=== PATIENT | female | born 2000 | race Caucasian/White ===

== ENCOUNTER 2022-06-11 22:04 | Emergency (ER) | payer OTHER, SELFPAY ==
--- NOTE | ~2022-06-11 | XR_ITS ---
EXAMINATION: XR CHEST CLINICAL INFORMATION: Cough, leukocytosis COMPARISON: None TECHNIQUE: 2 views of the chest were obtained. FINDINGS: The lungs are clear with no focal consolidation. No evidence of pneumothorax, pulmonary edema, or pleural effusions. The cardiomediastinal silhouette is unremarkable. No acute osseous findings. XR/XR chest 2V IMPRESSION: No acute cardiopulmonary findings.
[2022-06-11 22:19] VITALS: BP 125/81; PULSE 85; RESP 20; TEMP 36.7; O2SAT 96; BMI 37.1
[2022-06-11 23:02] LABS: Basophils Absolute Auto 0.1 X10*3/uL (0.0-0.2); Basophils Percent Auto 0.6 % (0-2); Eosinophils Absolute Auto 0.3 X10*3/uL (0.0-0.4); Eosinophils Percent Auto 1.6 % (0-4); Hematocrit 37.8 % (37.0-47.0); Hemoglobin 13.4 g/dl (12.0-16.0); Imm Gran Abs Auto 0.09 X10*3/uL (0.00-0.03); Imm Gran Pct Auto 0.5 % (0.0-0.4); Lymphocytes Absolute Auto 5.3 X10*3/uL (1.2-4.9); Lymphocytes Percent Auto 26.9 % (20-40); MANUAL DIFF FLAG SCAN; Mean Corpuscular HGB Conc 35.4 g/dl (31.0-35.0); Mean Corpuscular Hemoglobin 29.8 pg (27.0-33.0); Mean Platelet Volume 8.4 fL (9.4-12.3); Monocytes Absolute Auto 1.3 X10*3/uL (0.1-1.2); Monocytes Percent Auto 6.4 % (2-11); Neutrophils Absolute Auto 12.7 x10*3/uL (2.0-8.3); Platelet Count 396 X10*3/uL (160-400); Red Cell Distribution Width 13.3 % (11.0-16.0); SCAN SMEAR FLAG 1; White Blood Count 19.8 X10*3/uL (4.8-10.8)
[2022-06-11 23:11] LABS: Anion Gap 16 (12-20); Blood Urea Nitrogen 9 mg/dL (9-16); Calcium 9.1 mg/dL (8.4-10.2); Carbon Dioxide 22 mmol/L (22-29); Chloride 102 mmol/L (96-108); Creatinine Clr Calc Pharmacy 138.6; Estimated Glomerular Filt Rate > 60; Glucose Random 130 mg/dL (60-115); Potassium 4.2 mmol/L (3.3-5.1); Sodium 136 mmol/L (135-145)
[2022-06-11 23:16] LABS: COVID-19 Test Negative (Negative)
[2022-06-11 23:18] LABS: SLIDE REVIEW VERIFIED
[2022-06-12 01:37] VITALS: BP 110/70; PULSE 69; RESP 20; TEMP 36.7; O2SAT 98
--- NOTE | 2022-06-12 01:37 | ED_ITS ---
HPI - URI/Sore Throat General Chief Complaint: Headache Stated Complaint: Pain in head and face, biotaste in mouth Time Seen by Provider: 06/12/22 01:25 Source: patient and family Mode of arrival: ambulatory Limitations: no limitations History of Present Illness HPI Narrative: Patient otherwise healthy vaccinated against COVID been sick for last 4 days. Other family member was sick last week but tested positive for COVID. Patient tested negative. 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 no fever or chills no shortness of breath no wheezing Related Data Previous Rx's Medication Instructions Recorded amoxicillin 875 mg-potassium 1 tab PO BID #20 tabs 06/12/22 clavulanate 125 mg tablet benzonatate 200 mg capsule 200 mg PO TID PRN cough #20 caps 06/12/22 Allergies Allergy/AdvReac Type Severity Reaction Status Date / Time cat dander Allergy Itching Verified 06/11/22 22:26 dog dander Allergy Itching Verified 06/11/22 22:26 Review of Systems Review of Systems: Yes all other systems are reviewed and are negative [facility] Social History Social History Advance Directives: No Advance Directives Information Provided: Yes Patient : No Physical Exam Vital Signs: Vital Signs: Last Vital Signs Temp 98.1 F 06/12/22 01:37 Pulse 69 06/12/22 01:37 Resp 20 06/12/22 01:37 BP 110/70 06/12/22 01:37 Pulse Ox 98 06/12/22 01:37 O2 Del Method 06/12/22 01:37 BMI result Body Mass Index 37.1 Appearance: Alert. Oriented X3. No acute distress. HEENT: Pharynx normal. Oral Mucosa moist maxillary sinus and frontal sinus tenderness+ Neck: Normal inspection. Neck supple. CVS: Normal heart rate and rhythm. Pulses normal. Respiratory: No respiratory distress. Equal air entry bilateral, no wheezing/r ales/rhonchi Abdomen: Soft and nontender. Bowel sounds are present, no mass palpable, no CVA tenderness Skin: Skin warm and dry. Normal skin color. Normal skin turgor. Extremities: No lower extremity edema. No calf tenderness Neuro: Oriented X 3. No motor deficit. MDM - URI/Sore Throat MDM Narrative Medical decision making narrative: Patient has sinus headache with bronchitis chest x-ray negative leukocytosis will discharge patient home on Augmentin patient looks comfortable nontoxic look Lab Data Attestation: I reviewed the patient's lab results. Result diagrams: 06/11/22 22:52 06/11/22 22:52 Labs: Lab Results 06/11/22 06/11/22 06/11/22 Range/Units 22:52 22:52 22:52 WBC 19.8 H (4.8-10.8) X10*3/uL RBC 4.50 (4.20-5.50) X10*6/uL Hgb 13.4 (12.0-16.0) g/dl Hct 37.8 (37.0-47.0) % MCV 84.0 (80.0-98.0) fL MCH 29.8 (27.0-33.0) pg MCHC 35.4 H (31.0-35.0) g/dl RDW 13.3 (11.0-16.0) % Plt Count 396 (160-400) X10*3/uL MPV 8.4 L (9.4-12.3) fL Immature Gran % (Auto) 0.5 H (0.0-0.4) % Neut % (Auto) 64.0 (45-73) % Lymph % (Auto) 26.9 (20-40) % [place] % (Auto) 6.4 (2-11) % Eos % (Auto) 1.6 (0-4) % Baso % (Auto) 0.6 (0-2) % Lymph # (Auto) 5.3 H (1.2-4.9) X10*3/uL [place] # (Auto) 1.3 H (0.1-1.2) X10*3/uL Eos # (Auto) 0.3 (0.0-0.4) X10*3/uL Baso # (Auto) 0.1 (0.0-0.2) X10*3/uL Abs Immat Gran (auto) 0.09 H (0.00-0.03) X10*3/uL Absolute Neuts (auto) 12.7 H (2.0-8.3) x10*3/uL Absolute Nucleated RBC 0.000 (0.0-0.012) X10*3/uL Nucleated RBC % (auto) 0.0 (0.0-0.2) /100WBC Smear Tech's Comments VERIFIED Sodium 136 (135-145) mmol/L Potassium 4.2 (3.3-5.1) mmol/L Chloride 102 (96-108) mmol/L Carbon Dioxide 22 (22-29) mmol/L Anion Gap 16 (12-20) BUN 9 (9-16) mg/dL Creatinine 0.77 (0.5-1.4) mg/dL Estim Creat Clear Calc 138.6 Estimated GFR > 60 Random Glucose 130 H (60-115) mg/dL Calcium 9.1 (8.4-10.2) mg/dL COVID-19 (BRENDEN) Negative (Negative) COVID-19 Clin Com See Note Discharge Plan Discharge Clinical Impression: Sinusitis, Bronchitis Patient Disposition: Home, Self-Care Instructions: Acute Bronchitis (ED), Rhinosinusitis (ED) Additional Instructions: Take antibiotic as directed Drink plenty of fluids Follow with PCP Prescriptions: New amoxicillin-pot clavulanate 875-125 mg tablet 1 tab PO BID Qty: 20 0RF benzonatate 200 mg capsule 200 mg PO TID PRN (Reason: cough) Qty: 20 0RF Interventions: ED Discharge Assessment Last Done: 06/12/22 02:35 Discharge Date/Time: 06/12/22 02:38
[2022-06-12] MEDS: Amoxicillin/Potassium Clav 875 MG TABLET PO (01:47)
== END 2022-06-12 02:38 | disposition home or self-care (01) ==
PROVIDERS: Emergency Provider Internal Medicine
DX: J32.8 Other chronic sinusitis (principal); J40 Bronchitis, not specified as acute or chronic; Z20.822 Contact with and (suspected) exposure to COVID-19
CPT/HCPCS: 36415; 71046; 80048; 85025; 87635; 99283

== ENCOUNTER 2022-12-14 13:00 | Outpatient (RCR) | payer OTHER, SELFPAY | END 2022-12-14 14:19 | disposition home or self-care (01) | LOC: HO.OT 13:00 | PROVIDERS: PCP Internal Medicine; Visit Provider Internal Medicine | DX: M25.531 Pain in right wrist (principal); M25.532 Pain in left wrist | CPT/HCPCS: 97110; 97165 ==

== ENCOUNTER 2023-04-18 14:00 | Outpatient (RCR) | payer OTHER, SELFPAY | END 2023-05-23 08:28 | disposition home or self-care (01) | LOC: HO.PT 14:00 | PROVIDERS: PCP Internal Medicine; Visit Provider Registered Nurse | DX: M79.605 Pain in left leg (principal); M79.604 Pain in right leg | CPT/HCPCS: 97110; 97161 ==

== ENCOUNTER 2024-03-18 15:19 | Emergency (ER) | payer OTHER, SELFPAY ==
--- NOTE | ~2024-03-18 | XR_ITS ---
EXAMINATION: XR CHEST CLINICAL INFORMATION: Left upper quadrant pain COMPARISON: Chest x-ray on 06/12/2022 TECHNIQUE: Frontal view of the chest was obtained. FINDINGS: No significant abnormality is noted involving the heart, lungs, mediastinum, bony thorax or soft tissues. XR/XR chest 1V IMPRESSION: Unremarkable examination.
--- NOTE | ~2024-03-18 | CT_ITS ---
EXAMINATION: CT angio chest PE protocol, CT abdomen pelvis w IV con CLINICAL INFORMATION: Left upper quadrant pain. Pleurisy. COMPARISON: Chest radiograph from earlier in the same day TECHNIQUE: Prior to contrast administration, noncontrast localization images were obtained. Subsequently, multidetector volumetric imaging was performed from the thoracic inlet to below the diaphragms following the administration of 85 mL Omnipaque 350 intravenous contrast. This was followed by multidetector acquisition of the abdomen and pelvis. No contrast reaction reported Sagittal, coronal, and MIP oblique sagittal reformatted images were obtained on the CT workstation, uploaded to PACS, and reviewed. Total exam dose-length product 1353 mGy-cm FINDINGS: QUALITY OF STUDY/CONTRAST BOLUS: Satisfactory. CHEST: CHEST WALL: Unremarkable. AXILLA: No lymphadenopathy. PULMONARY ARTERIES: No pulmonary embolism. MEDIASTINUM: Heart is normal in size. No mediastinal lymphadenopathy. No hilar lymphadenopathy. CORONARY ARTERY CALCIFICATION: No significant coronary artery calcification appreciated on this exam. PLEURA: There is no pleural effusion. LUNGS: Low lung volumes. Some dependent atelectasis. No consolidation. Tiny calcified granuloma in the posterior right upper lobe. No suspicious pulmonary nodule. ABDOMEN AND PELVIS: ABDOMINAL AND PELVIC WALL: Unremarkable. LIVER AND BILIARY TREE: Enlarged liver measuring 22 cm in craniocaudal dimension. GALLBLADDER: Unremarkable. PANCREAS: Unremarkable. SPLEEN: Unremarkable. ADRENAL GLANDS: Unremarkable. KIDNEYS AND URETERS: Unremarkable. GASTROINTESTINAL TRACT: Unremarkable. Normal appendix. VASCULAR: Unremarkable. LYMPH NODES: No lymphadenopathy. FREE FLUID: No free fluid. BLADDER: Unremarkable. PELVIC VISCERA: Unremarkable. OSSEOUS STRUCTURES: Unremarkable. CT/CT angio chest PE protocol IMPRESSION: 1. No pulmonary embolism. 2. No acute abnormality in the chest, abdomen or pelvis. 3. Hepatomegaly. VTE: negative.
--- NOTE | ~2024-03-18 | CT_ITS ---
EXAMINATION: CT angio chest PE protocol, CT abdomen pelvis w IV con CLINICAL INFORMATION: Left upper quadrant pain. Pleurisy. COMPARISON: Chest radiograph from earlier in the same day TECHNIQUE: Prior to contrast administration, noncontrast localization images were obtained. Subsequently, multidetector volumetric imaging was performed from the thoracic inlet to below the diaphragms following the administration of 85 mL Omnipaque 350 intravenous contrast. This was followed by multidetector acquisition of the abdomen and pelvis. No contrast reaction reported Sagittal, coronal, and MIP oblique sagittal reformatted images were obtained on the CT workstation, uploaded to PACS, and reviewed. Total exam dose-length product 1353 mGy-cm FINDINGS: QUALITY OF STUDY/CONTRAST BOLUS: Satisfactory. CHEST: CHEST WALL: Unremarkable. AXILLA: No lymphadenopathy. PULMONARY ARTERIES: No pulmonary embolism. MEDIASTINUM: Heart is normal in size. No mediastinal lymphadenopathy. No hilar lymphadenopathy. CORONARY ARTERY CALCIFICATION: No significant coronary artery calcification appreciated on this exam. PLEURA: There is no pleural effusion. LUNGS: Low lung volumes. Some dependent atelectasis. No consolidation. Tiny calcified granuloma in the posterior right upper lobe. No suspicious pulmonary nodule. ABDOMEN AND PELVIS: ABDOMINAL AND PELVIC WALL: Unremarkable. LIVER AND BILIARY TREE: Enlarged liver measuring 22 cm in craniocaudal dimension. GALLBLADDER: Unremarkable. PANCREAS: Unremarkable. SPLEEN: Unremarkable. ADRENAL GLANDS: Unremarkable. KIDNEYS AND URETERS: Unremarkable. GASTROINTESTINAL TRACT: Unremarkable. Normal appendix. VASCULAR: Unremarkable. LYMPH NODES: No lymphadenopathy. FREE FLUID: No free fluid. BLADDER: Unremarkable. PELVIC VISCERA: Unremarkable. OSSEOUS STRUCTURES: Unremarkable. CT/CT abdomen pelvis w IV con IMPRESSION: 1. No pulmonary embolism. 2. No acute abnormality in the chest, abdomen or pelvis. 3. Hepatomegaly. VTE: negative.
[2024-03-18 15:32] VITALS: BP 133/82; PULSE 96; RESP 18; TEMP 36.7; O2SAT 98; BMI 41.2
--- OUTSIDE RECORDS SUMMARY | 2024-03-18 15:33 | XMS_ITS | Continuity of Care Document ---
Author Organization [facility] Address [address] [place] [address]- Care Team Providers Care Adobe Maker Name Role Phone Parris Armando NP Primary Care Physician [phone] [place] [facility] [place] 11/[place]/22 [facility] [address] [place] [address]- Attending Physician: Sasha Lainez Admitting Physician: Admtr, Ar8 Referring Physician: Admtr, Ar8 Allergies, Adverse Reactions, Alerts Substance Reaction Severity Status Cats Active Dogs Active Medications cloNIDine 0.2 mg oral tablet 0.2 mg, 1, tablet, By Mouth, Daily at bedtime, # 30 tablet, Refills 0, Tot. Refills 0, Maintenance,04/06/17 10:01:06, Route to Pharmacy Electronically, [id number], [facility]- [address] [place] [address] Start Date: 04/06/17 Status: Ordered hydrOXYzine pamoate 25 mg oral capsule 1 capsule = 25 mg, By Mouth, Daily at bedtime, # 30 capsule, 0 Refills, Maintenance, 04/06/17 10:01:35 Start Date: 04/06/17 Status: Ordered loratadine 10 mg oral tablet 10 mg, 1, tablet, By Mouth, Daily, Refills 0, Maintenance, 03/23/17 12:30:40 Start Date: 03/23/17 Status: Ordered LORazepam 1 mg oral tablet TAKE 1 TO 2 TABLETS BY MOUTH EVERY NIGHT NEEDED Start Date: 10/07/22 Status: Ordered ranitidine 75 mg oral tablet 1 tablet = 75 mg, By Mouth, Daily, 0 Refills, Maintenance, 03/23/17 12:30:14 Start Date: 03/23/17 Status: Ordered Wellbutrin SR 100 mg/12 hours oral tablet, extended release 1 tablet = 100 mg, By Mouth, Daily in AM, # 30 tablet, 0 Refills, Maintenance, 04/06/17 10:00:06 Start Date: 04/06/17 Status: Ordered Problem List Condition Confirmation Course Effective Dates Status Health St atus Informant Attention deficit disorder Confirmed Active Major depression, chronic Confirmed Active Anxiety, generalized Confirmed Active Severe obesity Confirmed Active Patient Care team information Care Team Personnel Name: Parris Armando NP Position: S PCO w/OE and EZ Script Member Role: PCP Address: Address: [address] [place] [address]- Care Team Related Persons Name: JOSEPH LOCKE Address: home [address] [address] Name: DUANE HANNON Address: home [address] [place] [address]
--- OUTSIDE RECORDS SUMMARY | 2024-03-18 15:34 | XMS_ITS | Continuity of Care Document ---
Author Organization [facility] Address [address] [place] [address]- Care Team Providers Care Parole Director Name Role Phone Parris Armando NP Primary Care Physician En[place] [facility] [place] Date(s): 10/08/22 - 11/07/22 [facility] [address] [place] [address]- [place] Allergies, Adverse Reactions, Alerts Substance Reaction Severity Status Cats Active Dogs Active Medications cloNIDine 0.2 mg oral tablet 0.2 mg, 1, tablet, By Mouth, Daily at bedtime, # 30 tablet, Refills 0, Tot. Refills 0, Maintenance,04/06/17 10:01:06, Route to Pharmacy Electronically, [id number], [facility] [address] [place] [address] Start Date: 04/06/17 Status: Ordered hydrOXYzine pamoate [...] Team Personnel Name: Parris Armando NP Position: [facility] PCO w/OE and EZ Script Member Role: PCP Address: Address: [address] [place] [address], [facility] [address] Care Team Related Persons Name: JOSEPH LOCKE Address: [address] [place] [address] Name: DUANE HANNON Address: home [address] [place] [address]
--- OUTSIDE RECORDS SUMMARY | 2024-03-18 15:34 | XMS_ITS | Continuity of Care Document ---
Author Organization [facility] Address [address] [place] [address]- Care Team Providers Care Converter Supervisor Name Role Phone Long Parris KAUR Primary Care Physician [phone] [place] [facility] [place] - 12/03/22 [facility] [address] [place] [address]- [place] Allergies, Adverse Reactions, Alerts Substance Reaction Severity Status Cats Active Dogs Active Medications cloNIDine 0.2 mg oral tablet 0.2 mg, 1, tablet, By Mouth, Daily at bedtime, # 30 tablet, Refills 0, Tot. Refills 0, Maintenance,04/06/17 10:01:06, Route to Pharmacy Electronically, [id number], [facility]- [address] [place] [address] Start Date: 04/06/17 Status: Ordered hydrOXYzine pamoate [...] EZ Script Member Role: PCP Address: Address: [address] [place] [address] Care Team Related Persons Name: JOSEPH LOCKE Address: [address] [address] Name: DUANE HANNON Address: home [address] [place] [address]
--- OUTSIDE RECORDS SUMMARY | 2024-03-18 15:34 | XMS_ITS | Continuity of Care Document ---
Author Organization [facility] Address [address] [place] [address]- Care Team Providers Care Grassland Conservationist Name Role Phone Long Parris KAUR Primary Care Physician [phone] Encounter [facility] [place] Date(s): 01/06/23 - 02/05/23 [facility] [address] [place] [address]- Attending Physician: aSsha Lainez Admitting Physician: Admtr, Sasha Referring Physician: Admtr, Ar8 Allergies, Adverse Reactions, Alerts Substance Reaction Severity Status Cats Active Dogs Active Medications cloNIDine 0.2 mg oral tablet 0.2 mg, 1, tablet, By Mouth, Daily at bedtime, # 30 tablet, Refills 0, Tot. Refills 0, Maintenance,04/06/17 10:01:06, Route to Pharmacy Electronically, [id number], [facility] [address] [place] [address] Start Date: 04/06/17 Status: Ordered hydrOXYzine pamoate 25 mg oral capsule 1 capsule = 25 mg, By Mouth, Daily at bedtime, # 30 capsule, 0 Refills, Maintenance, 04/06/17 10:01:35 Start Date: 04/06/17 Status: Ordered hyoscyamine 0.125 mg oral tablet 0.125 mg, 1, tablet, By Mouth, 4 times a day, PRN, # 120 tablet, Refills 2, Tot. Refills 2, Maintenance, NEEDED FOR SPASM, 01/06/23 15:31:00 EDT, Print Requisition, Partial fill upon patient request if the prescription is for a schedule II opioid d... Start Date: 01/06/23 Status: Ordered hyoscyamine 0.125 mg oral tablet 0.125 mg, 1, tablet, By Mouth, 4 times a day, PRN, # 120 tablet, Refills 2, Tot. Refills 2, Maintenance, NEEDED FOR SPASM, 01/06/23 16:22:00 EDT, Print Requisition, Partial fill upon patient request if the prescription is for a schedule II opioid d... Start Date: 01/06/23 Status: Ordered loratadine 10 mg oral tablet [...] Personnel Name: Parris Armando NP Position: S Associate Professional Member Role: PCP Address: Address: [address] [place] [address]- Care Team Related Persons Name: JOSEPH LOCKE Address: [address] [address] Name: DUANE HANNON Address: home [address] [place] [address]
--- OUTSIDE RECORDS SUMMARY | 2024-03-18 15:34 | XMS_ITS | Continuity of Care Document ---
Author Organization [facility] Address [address] [place] [address]- Care Team Providers Care Cosmetic Sales Assistant Name Role Phone Long Parris KAUR Primary Care Physician [phone] [place] [facility] [place] - 02/19/23 [facility] [address] [place] [address]- [place] Allergies, Adverse Reactions, Alerts Substance Reaction Severity Status Cats Active Dogs Active Medications cloNIDine 0.2 mg oral tablet 0.2 mg, 1, tablet, By Mouth, Daily at bedtime, # 30 tablet, Refills 0, Tot. Refills 0, Maintenance,04/06/17 10:01:06, Route to Pharmacy Electronically, [id number], [facility]- [address] [place] [address] Start Date: 04/06/17 Status: Ordered hydrOXYzine pamoate [...] Team Personnel Name: Parris Armando NP Position: [facility] Associate Professional Member Role: PCP Address: Address: [address] [place] [address]- Care Team Related Persons Name: JOSEPH LOCKE Address: home [address] [place] [address] Name: DUANE HANNON Address: home [address] [place] [address]
--- OUTSIDE RECORDS SUMMARY | 2024-03-18 15:34 | XMS_ITS | Continuity of Care Document ---
Author Organization [facility] Address [address] [place] [address]- Care Team Providers Care Care Management Assistant Name Role Phone Parris Armando NP Primary Care Physician [place] [facility] [place] - 11/11/22 [facility] [address] [place] [address]- [place] Allergies, Adverse Reactions, Alerts Substance Reaction Severity Status Cats Active Dogs Active Medications cloNIDine 0.2 mg oral tablet 0.2 mg, 1, tablet, By Mouth, Daily at bedtime, # 30 tablet, Refills 0, Tot. Refills 0, Maintenance,04/06/17 10:01:06, Route to Pharmacy Electronically, [id number], [facility]- [address] [place] [address] Start Date: 04/06/17 Status: Ordered hydrOXYzine pamoate [...] EZ Script Member Role: PCP Address: Address: [address] [place] [address], [facility] [address] Care Team Related Persons Name: JOSEPH LOCKE Address: [address] [place] [address] Name: DUANE HANNON Address: home [address] [place] [address]
--- OUTSIDE RECORDS SUMMARY | 2024-03-18 15:34 | XMS_ITS | Continuity of Care Document ---
Author Organization [facility] Address [address] [place] [address]- Care Team Providers Care Roofing Layer Name Role Phone Parris Armando NP Primary Care Physician [phone] [place] [facility] [place] 08/25/20 - 09/24/20 [facility] [address] [place], [place] [address] Attending Physician: AdmSasha eng Admitting Physician: Admtr, Sasha Referring Physician: Admtr, ArDee Dee Allergies, Adverse Reactions, Alerts Substance Reaction Severity Status Cats Active Dogs Active Medications cloNIDine 0.2 mg oral tablet 0.2 mg, 1, tablet, By Mouth, Daily at bedtime, # 30 tablet, Refills 0, Tot. Refills 0, Maintenance,04/06/17 10:01:06, Route to Pharmacy Electronically, [id number], [facility] Start Date: 04/06/17 Status: Ordered Effexor XR 75 mg oral capsule, extended release 75 mg, 1, capsule, By Mouth, Daily at bedtime, # 30 capsule, Refills 0, Tot. Refills 0, Maintenance, 04/06/17 10:02:23, Route to Pharmacy Electronically, [id number], [facility] Start Date: 04/06/17 Status: Ordered hydrOXYzine pamoate 25 mg oral capsule 1 capsule = 25 mg, By Mouth, Daily at bedtime, # 30 capsule, 0 Refills, Maintenance, 04/06/17 10:01:35 Start Date: 04/06/17 Status: Ordered loratadine 10 mg oral tablet 10 mg, 1, tablet, By Mouth, Daily, Refills 0, Maintenance, 03/23/17 12:30:40 Start Date: 03/23/17 Status: Ordered ranitidine 75 mg oral tablet 1 tablet = 75 mg, By Mouth, Daily, 0 Refills, Maintenance, 03/23/17 12:30:14 Start Date: 03/23/17 Status: Ordered Wellbutrin SR 100 mg/12 hours oral tablet, extended release 1 tablet = 100 mg, By Mouth, Daily in AM, # 30 tablet, 0 Refills, Maintenance, 04/06/17 10:00:06 Start Date: 04/06/17 Status: Ordered Problem List Condition Effective Dates Status Health Status Inform ant Attention deficit disorder(Confirmed) Active Major depression, chronic(Confirmed) Active Anxiety, generalized(Confirmed) Active
--- OUTSIDE RECORDS SUMMARY | 2024-03-18 15:34 | XMS_ITS | Continuity of Care Document ---
Author Organization [facility] Address [address] [place] [address]- Care Team Providers Care Dba Manager Name Role Phone Parris Armando NP Primary Care Physician [phone] [place] [facility] [place]21 - 08/30/21 [facility] [address] [place] [address]- Attending Physician: Gainluca Araujo MD Admitting Physician: Gianluca Araujo MD Referring Physician: Parris Armando NP Allergies, Adverse Reactions, Alerts Substance Reaction Severity Status Cats Active Dogs Active Medications cloNIDine 0.2 mg oral tablet 0.2 mg, 1, tablet, By Mouth, Daily at bedtime, # 30 tablet, Refills 0, Tot. Refills 0, Maintenance,04/06/17 10:01:06, Route to Pharmacy Electronically, [id number], [facility]- [address] [place] [address] Start Date: 04/06/17 Status: Ordered Effexor XR 75 mg oral capsule, extended release 75 mg, 1, capsule, By Mouth, Daily at bedtime, # 30 capsule, Refills 0, Tot. Refills 0, Maintenance, 04/06/17 10:02:23, Route to Pharmacy Electronically, [id number], [facility] - [address] [place] [address] Start Date: 04/06/17 Status: Ordered hydrOXYzine pamoate [...]
--- OUTSIDE RECORDS SUMMARY | 2024-03-18 15:34 | XMS_ITS | Continuity of Care Document ---
Author Organization [facility] Address [address] [place] [address]- Care Team Providers Care Monkey Trainer Name Role Phone Parris Armando NP Primary Care Physician [place] [facility] [place]12[place] - 11/11/22 [facility] [address] [place] [address]- [place] Allergies, Adverse Reactions, Alerts Substance Reaction Severity Status Cats Active Dogs Active Medications cloNIDine 0.2 mg oral tablet 0.2 mg, 1, tablet, By Mouth, Daily at bedtime, # 30 tablet, Refills 0, Tot. Refills 0, Maintenance,04/06/17 10:01:06, Route to Pharmacy Electronically, [id number], [facility] [address] [place] [address] Start Date: 04/06/17 Status: Ordered hydrOXYzine pamoate [...] EZ Script Member Role: PCP Address: Address: [address] [place] [address], [facility] [address] Care Team Related Persons Name: JOSEPH LOCKE Address: [address] [place] [address] Name: DUANE HANNON Address: [address] [place] [address]
--- OUTSIDE RECORDS SUMMARY | 2024-03-18 15:34 | XMS_ITS | Continuity of Care Document ---
Author Organization [facility] Address [address] [place] [address]- Care Team Providers Care Study Hall Supervisor Name Role Phone Parris Armando NP Primary Care Physician En[place] [facility] [place](s): 10/08/22 - 11/07/22 [facility] [address] [place] [address]- [place] Allergies, Adverse Reactions, Alerts Substance Reaction Severity Status Cats Active Dogs Active Medications cloNIDine 0.2 mg oral tablet 0.2 mg, 1, tablet, By Mouth, Daily at bedtime, # 30 tablet, Refills 0, Tot. Refills 0, Maintenance,04/06/17 10:01:06, Route to Pharmacy Electronically, [id number], [facility]- [address] [place] [address] Start Date: 04/06/17 Status: Ordered hydrOXYzine pamoate [...] EZ Script Member Role: PCP Address: Address: [address] [place] [address], [facility] [address] Care Team Related Persons Name: JOSEPH LOCKE Address: [address] [place] [address] Name: DUANE HANNON Address: [address] [place] [address]
--- OUTSIDE RECORDS SUMMARY | 2024-03-18 15:34 | XMS_ITS | Continuity of Care Document ---
Author Organization [facility] Address [address] [place] [address]- Care Team Providers Care Junior Linux Administrator Name Role Phone Parris Armando NP Primary Care Physician [place] [facility] [place] - 11/11/22 [facility] [address] [place] [address]- [place] Allergies, Adverse Reactions, Alerts Substance Reaction Severity Status Cats Active Dogs Active Medications cloNIDine 0.2 mg oral tablet 0.2 mg, 1, tablet, By Mouth, Daily at bedtime, # 30 tablet, Refills 0, Tot. Refills 0, Maintenance,04/06/17 10:01:06, Route to Pharmacy Electronically, [id number], [facility]- [address] [place] [address] Start Date: 04/06/17 Status: Ordered hydrOXYzine pamoate [...] EZ Script Member Role: PCP Address: Address: [address] [place] [address], [facility] [address] Care Team Related Persons Name: JOSEPH LOCKE Address: [address] [place] [address] Name: DUANE HANNON Address: [address] [place] [address]
--- OUTSIDE RECORDS SUMMARY | 2024-03-18 15:34 | XMS_ITS | Continuity of Care Document ---
Author Organization [facility] Address [address] [place] [address]- Care Team Providers Care Pool Technician Name Role Phone Parris Armando NP Primary Care Physician [place] [facility] [place]23 - 03/04/23 [facility] [address] [place] [address]- [place] Allergies, Adverse Reactions, Alerts Substance Reaction Severity Status Cats Active Dogs Active Medications cloNIDine 0.2 mg oral tablet 0.2 mg, 1, tablet, By Mouth, Daily at bedtime, # 30 tablet, Refills 0, Tot. Refills 0, Maintenance,04/06/17 10:01:06, Route to Pharmacy Electronically, [id number], [facility] [address] [place] [address] Start Date: 04/06/17 Status: Ordered hydrOXYzine pamoate [...] Team Personnel Name: Parris Armando NP Position: [facility] Associate Professional Member Role: PCP Address: Address: [address] [place] [address]- Care Team Related Persons Name: JOSEPH LOCKE Address: home [address] [place] [address] Name: DUANE HANNON Address: home [address] [place] [address]
--- OUTSIDE RECORDS SUMMARY | 2024-03-18 15:34 | XMS_ITS | Continuity of Care Document ---
Author Organization [facility] Address [address] [place] [address]- Care Team Providers Care Yard Goods Salesperson Name Role Phone Parris Armando NP Primary Care Physician [phone] Encounter [facility] [place] Date(s): 08/21/20 - 09/24/20 [facility] [address] [place], [place] [address] Attending Physician: Parris Armando NP Admitting Physician: Parris Armando NP Referring Physician: Parris Armando NP Allergies, Adverse Reactions, Alerts Substance Reaction Severity Status Cats Active Dogs Active Medications cloNIDine 0.2 mg oral tablet 0.2 mg, 1, tablet, By Mouth, Daily at bedtime, # 30 tablet, Refills 0, Tot. Refills 0, Maintenance,04/06/17 10:01:06, Route to Pharmacy Electronically, [id number], [facility] [address] [place] [address] Start Date: 04/06/17 Status: Ordered Effexor XR 75 mg oral capsule, extended release 75 mg, 1, capsule, By Mouth, Daily at bedtime, # 30 capsule, Refills 0, Tot. Refills 0, Maintenance, 04/06/17 10:02:23, Route to Pharmacy Electronically, [id number], [facility] Start Date: 04/06/17 Status: Ordered hydrOXYzine pamoate [...]
--- OUTSIDE RECORDS SUMMARY | 2024-03-18 15:34 | XMS_ITS | Continuity of Care Document ---
Author Organization [facility] Address [address] [place] [id number]- Care Team Providers Care Oil Analyst Name Role Phone Parris Armando NP Primary Care Physician Encounter [facility] Date(s): 07/31/21 - 08/30/21 [facility] [address] [place] [id number]- Attending Physician: Sasha Lainez Admitting Physician: Sasha Lainez Referring Physician: AdmtrSasha Allergies, Adverse Reactions, Alerts Substance Reaction Severity Status Cats Active Dogs Active Medications cloNIDine 0.2 mg oral tablet 0.2 mg, 1, tablet, By Mouth, Daily at bedtime, # 30 tablet, Refills 0, Tot. Refills 0, Maintenance,04/06/17 10:01:06, Route to Pharmacy Electronically, [id number], [facility] [id number] [facility] Start Date: 04/06/17 Status: Ordered Effexor XR 75 mg oral capsule, extended release 75 mg, 1, capsule, By Mouth, Daily at bedtime, # 30 capsule, Refills 0, Tot. Refills 0, Maintenance, 04/06/17 10:02:23, Route to Pharmacy Electronically, [id number], [facility] [id number] [facility] Start Date: 04/06/17 Status: Ordered hydrOXYzine pamoate [...]
--- NOTE | 2024-03-18 15:44 | PC.NURSE ---
patient arrives through external triage ambulatory with steady gait, patient is complaining of left sided pain and points to her ribs towards the mid axillary line. states it hurts when you press on it and when she takes a deep breath and when she moves, otherwise she states if she is not moving it does not hurt. patient denies chest pain or shortness of breath, denies any recent falls or trauma to the area, patient only endorsing pain with movement and palpation. states this has happene before and it resolved itself. vital signs stable upon arrival, blood work drawn, patient resting on stretcher in NAD. awaiting MD mendoza at this time
[2024-03-18 15:46] LABS: MANUAL DIFF FLAG NO
[2024-03-18 15:47] LABS: Basophils Absolute Auto 0.1 X10*3/uL (0.0-0.2); Basophils Percent Auto 0.8 % (0-2); Eosinophils Absolute Auto 0.1 X10*3/uL (0.0-0.4); Hematocrit 40.3 % (37.0-47.0); Hemoglobin 13.7 g/dl (12.0-16.0); Imm Gran Abs Auto 0.03 X10*3/uL (0.00-0.03); Imm Gran Pct Auto 0.3 % (0.0-0.4); Lymphocytes Absolute Auto 1.9 X10*3/uL (1.2-4.9); Lymphocytes Percent Auto 20.2 % (20-40); Mean Corpuscular Hemoglobin 27.7 pg (27.0-33.0); Mean Corpuscular Volume 81.4 fL (80.0-98.0); Mean Platelet Volume 8.4 fL (9.4-12.3); Monocytes Absolute Auto 0.7 X10*3/uL (0.1-1.2); Neutrophils Absolute Auto 6.5 x10*3/uL (2.0-8.3); Neutrophils Percent Auto 70.7 % (45-73); Platelet Count 400 X10*3/uL (160-400); Red Blood Count 4.95 X10*6/uL (4.20-5.50); Red Cell Distribution Width 13.4 % (11.0-16.0); White Blood Count 9.3 X10*3/uL (4.8-10.8)
[2024-03-18 16:02] LABS: Alanine Aminotransferase 27 U/L (0-31); Albumin Level 4.1 g/dL (3.5-5.0); Alkaline Phosphatase 105 U/L (39-117); Anion Gap 16 (12-20); Aspartate Amino Transferase 19 U/L (5-31); Bilirubin Total 0.3 mg/dL (0.0-1.0); Blood Urea Nitrogen 13 mg/dL (9-16); Calcium 9.2 mg/dL (8.4-10.2); Carbon Dioxide 20 mmol/L (22-29); Chloride 108 mmol/L (96-108); Creatinine Clr Calc Pharmacy 143.2; Estimated Glomerular Filt Rate > 60; Glucose Random 128 mg/dL (60-115); Potassium 4.2 mmol/L (3.3-5.1); Sodium 140 mmol/L (135-145); Total Protein 7.7 g/dL (6.5-8.0)
[2024-03-18 16:52] LABS: Lipase 34 U/L (8-78)
--- NOTE | 2024-03-18 16:54 | ED_ITS ---
HPI - General Adult General Chief complaint: Abdominal Pain Stated complaint: abd pain Time Seen by Provider: 03/18/24 16:31 Source: patient Mode of arrival: ambulatory Limitations: no limitations History of Present Illness ED Provider: Sameer Lane PA-C HPI narrative: 23-year-old female history of prediabetes, autism, and anxiety presents to ED for left upper quadrant pain with pleurisy since yesterday. Patient states left upper quadrant pain on movement. Patient denies any trauma, coughing, leg swelling, calf pain, recent long travel, fever, or chills. Patient states she woke up with the pain. Patient states having this before in the past Related Data Previous Rx's ?Medication ?Instructions ?Recorded amoxicillin 875 mg-potassium 1 tab PO BID #20 tabs 06/12/22 clavulanate 125 mg tablet benzonatate 200 mg capsule 200 mg PO TID PRN cough #20 caps 06/12/22 cyclobenzaprine 10 mg tablet 10 mg PO BEDTIME PRN muscle spasm 03/18/24 7 days #7 tabs naproxen 500 mg tablet 500 mg PO BID PRN pain 7 days #14 03/18/24 tabs Allergies Allergy/AdvReac Type Severity Reaction Status Date / Time cat dander Allergy Itching Verified 03/18/24 15:34 dog dander Allergy Itching Verified 03/18/24 15:34 Review of Systems 2 Review of Systems: Left upper quadrant tenderness with pain on palpation. Yes all other systems are reviewed and are negative PMFSH Social History Social History Smoked in Last 30 Days: No Use of substances other than those prescribed or required for medical reasons: No Advance Directives: No Advance Directives Information Provided: Yes Do you have a plan to hurt others: No Plan Patient : No Physical Exam ED Vital Signs: Vital Signs - 24 hr 03/18/24 15:32 03/18/24 19:59 03/18/24 22:00 Temperature 98.0 F 98.2 F 98.3 F Pulse Rate 96 88 84 Respiratory Rate 18 18 18 Blood Pressure 133/82 130/80 132/76 Pulse Oximetry 98 97 98 Oxygen Delivery Method Room Air Room Air Room Air 03/18/24 22:33 Temperature 98.3 F Pulse Rate 84 Respiratory Rate 18 Blood Pressure 132/76 Pulse Oximetry 98 Oxygen Delivery Method Room Air BMI result Body Mass Index 41.2 Const General: cooperative, healthy appearing, comfortable, no acute distress, well developed, alert, awake and Physically active Orientation/consciousness: oriented to person, oriented to place, oriented to time and patient oriented x3 HENMT Head: Yes normal to inspection, Yes No palpable skull fracture present, Yes normocephalic and Yes atraumatic Eyes General: appearance normal, both eyes and all related structures Neck Neck: Yes normal visual inspection, Yes full ROM, Yes no lymphadenopathy, Yes no meningeal signs, Yes trachea midline, Yes supple, No anterior neck swelling and No tender Chest Chest palpation & inspection: normal inspection of the chest and normal palpation of entire chest wall Resp Effort & Inspection: normal respiratory effort and able to speak in complete sentences Auscultation: clear to auscultation bilaterally Cardio Jugular venous distension: no JVD Heart sounds: S1 normal heart sound present and S2 normal heart sound present GI Inspection: Yes normal to inspection and No abdominal wall ecchymosis Palpation (GI): Soft to palpation, not firm, Tenderness to palpation present (GI) in the LUQ, no guarding and not rigid General: No CVA tenderness and Yes no CVA tenderness Back/Spine/Pelvis Back: no CVA tenderness, No CVA tenderness and No back tenderness Skin General skin exam: no rashes or lesions noted, elasticity normal and turgor normal Neuro General: oriented to person, oriented to place, oriented to time, patient oriented x3, gait normal, tone normal, moves all extremities, Normal light touch and pain sensation, no meningeal signs, no focal motor deficits, CN's II-XI intact bilaterally and normal sensation to monofilament Extrem Other: Bilateral lower extremity negative for swelling, pitting edema, or calf tenderness Medications Administered Discontinued Medications Generic Name Dose Route Start Last Admin Trade Name Freq PRN Reason Stop Dose Admin Cyclobenzaprine HCl 10 mg 03/18/24 16:58 03/18/24 17:23 Cyclobenzaprine Hcl 10 Mg Tablet PO 03/18/24 16:59 10 mg ONCE ONE Administration Iohexol 100 ml 03/18/24 20:32 03/18/24 20:33 Iohexol 350 Mg/Ml 100 Ml Infus..Btl IV 03/18/24 20:33 85 ml ONCE ONE Administration Ketorolac Tromethamine 30 mg 03/18/24 16:58 03/18/24 17:24 Ketorolac Tromethamine 30 Mg/Ml Vial IVPUSH 03/18/24 16:59 30 mg ONCE ONE Administration Simethicone 160 mg 03/18/24 16:58 03/18/24 17:22 Simethicone 80 Mg Tab.Chew PO 03/18/24 16:59 160 mg ONCE ONE Administration Medical Decision Making Medical Decision Making [facility] Narrative: 23-year-old female with left upper quadrant pain since yesterday. Patient has or tenderness. Patient states pleurisy. Initial labs were normal. Unlikely PE but due to complaint of pleurisy will do EKG troponin and D-dimer and give meds pain. 10:05pm: Abdominal CT scan chest CT scans normal. Negative for PE or any acute medical/surgical etiologies. CT scan positive only for hepatomegaly. Patient's pain improved. Labs are normal. One troponin engough with heart score 1. Patient had symptoms since tuesday. Not suspecting CHF. Patient is safe for discharge. Muscular abdominal. Patient informed worrisome signs and informed to follow-up and return to ED immediately if he has them. Differential Diagnosis Differential Diagnoses: The differential diagnosis associated with the presentation includes (PE, pneumonia, spasm, muscle strain, UTI, kidney stones, pyelonephritis, abdominal etiology) Admission/Observation Consideration of admission/observation: Escalation of care including admission/observation considered Lab Data [facility] Lab Attestation statement: I reviewed the patient's lab results. 03/18/24 15:42 03/18/24 15:42 Labs: Lab Results 03/18/24 03/18/24 03/18/24 Range/Units 15:42 17:22 19:03 WBC 9.3 (4.8-10.8) X10*3/uL RBC 4.95 (4.20-5.50) X10*6/uL Hgb 13.7 (12.0-16.0) g/dl Hct 40.3 (37.0-47.0) % MCV 81.4 (80.0-98.0) fL MCH 27.7 (27.0-33.0) pg MCHC 34.0 (31.0-35.0) g/dl RDW 13.4 (11.0-16.0) % Plt Count 400 (160-400) X10*3/uL MPV 8.4 L (9.4-12.3) fL Immature Gran % (Auto) 0.3 (0.0-0.4) % Neut % (Auto) 70.7 (45-73) % Lymph % (Auto) 20.2 (20-40) % [place] % (Auto) 7.0 (2-11) % Eos % (Auto) 1.0 (0-4) % Baso % (Auto) 0.8 (0-2) % Lymph # (Auto) 1.9 (1.2-4.9) X10*3/uL [place] # (Auto) 0.7 (0.1-1.2) X10*3/uL Eos # (Auto) 0.1 (0.0-0.4) X10*3/uL Baso # (Auto) 0.1 (0.0-0.2) X10*3/uL Abs Immat Gran (auto) 0.03 (0.00-0.03) X10*3/uL Absolute Neuts (auto) 6.5 (2.0-8.3) x10*3/uL Absolute Nucleated RBC 0.000 (0.0-0.012) X10*3/uL Nucleated RBC % (auto) 0.0 (0.0-0.2) /100WBC PT 10.3 L (11.1-13.3) SEC INR 0.8 L (0.9-1.1) APTT 31.3 (26.0-36.8) SEC D-Dimer High Sensitivty < 150 NG/ML Sodium 140 (135-145) mmol/L Potassium 4.2 (3.3-5.1) mmol/L Chloride 108 (96-108) mmol/L Carbon Dioxide 20 L (22-29) mmol/L Anion Gap 16 (12-20) BUN 13 (9-16) mg/dL Creatinine 0.73 (0.5-1.4) mg/dL Estim Creat Clear Calc 143.2 Estimated GFR > 60 Random Glucose 128 H (60-115) mg/dL Calcium 9.2 (8.4-10.2) mg/dL Total Bilirubin 0.3 (0.0-1.0) mg/dL AST 19 (5-31) U/L ALT 27 (0-31) U/L Alkaline Phosphatase 105 (39-117) U/L Troponin I High Sens < 2.7 (<3.5-17.0) ng/L Total Protein 7.7 (6.5-8.0) g/dL Albumin 4.1 (3.5-5.0) g/dL Lipase 34 (8-78) U/L Beta HCG, Quant < 2 mIU/mL Urine Color Yellow Urine Appearance Clear Urine pH 5.5 (5.0-9.0) Ur Specific Paradis >= 1.030 H (1.005-1.025) Urine Protein Negative (Neg-Trace) mg/dL Urine Glucose (UA) Negative (Negative) mg/dL Urine Ketones Trace (Negative) mg/dL Urine Blood Negative (Negative) Urine Nitrite Negative (Negative) Ur Leukocyte Esterase Negative (Negative) Urine Test NEGATIVE (NEGATIVE) Independent Interpretation I performed an independent interpretation of an: Plain X-Ray and CT Scan Radiology Impression Discussion of test interpretation with radiology: I have reviewed the radiologist's reading. Independent Historian Clinical information obtained from an independent historian. History obtained from or confirmed by: Other (patient) External Record Review External record reviewed: Other (prior visits) Prescription Management I considered prescription management with: Pain Medication Discharge Plan Discharge Clinical Impression: Abdominal pain, Abdominal muscle strain, Hepatomegaly Patient Disposition: Home, Self-Care Instructions: Muscle Strain (ED), Abdominal Pain (ED) Additional Instructions: Recommend follow-up with your primary care provider. Return to the ED for abdominal pain, chest pain, shortness of breath, coughing up blood, weakness, fever, chills, chest pain shortness of breath on inspiration, calf pain, leg swelling, hematuria, this dysuria, flank pain, or any other concerning symptoms. Prescriptions: New naproxen 500 mg tablet 500 mg PO BID PRN (Reason: pain) 7 Days Qty: 14 0RF cyclobenzaprine 10 mg tablet 10 mg PO BEDTIME PRN (Reason: muscle spasm) 7 Days Qty: 7 0RF No Action amoxicillin-pot clavulanate 875-125 mg tablet 1 tab PO BID Qty: 20 0RF benzonatate 200 mg capsule 200 mg PO TID PRN (Reason: cough) Qty: 20 0RF Stand Alone Forms: Work/School Release Interventions: ED Discharge Assessment Last Done: 03/18/24 22:33 Discharge Date/Time: 03/18/24 22:38 Print Language: Georgian
--- NOTE | 2024-03-18 16:58 | ECG_ITS ---
Test Reason : upper abd pain Blood Pressure : / mmHG Vent. Rate : 083 BPM Atrial Rate : 083 BPM P-R Int : 124 ms QRS Dur : 088 ms QT Int : 372 ms P-R-T Axes : 039 038 018 degrees QTc Int : 437 ms Normal sinus rhythm with sinus arrhythmia Nonspecific T wave abnormality Borderline ECG No previous ECGs available Referred By: Sameer Lane Electronically Signed By:JULIAN DEMPSEY
[2024-03-18 17:03] LABS: HCG Quantitative < 2 mIU/mL
[2024-03-18] MEDS: Simethicone 80 MG TAB.CHEW 160 MG PO (17:22)
[2024-03-18] MEDS: Cyclobenzaprine HCl 10 MG TABLET PO (17:23)
[2024-03-18] MEDS: Ketorolac Tromethamine 30 MG/ML VIAL IVPUSH (17:24)
[2024-03-18 17:44] LABS: INTERNATIONAL NORM RATIO 0.8 (0.9-1.1); Prothrombin Time 10.3 SEC (11.1-13.3)
--- NOTE | 2024-03-18 17:44 | PC.NURSE ---
patient medicated per OCT 20g PIV placed by this RN in RAC
[2024-03-18 17:46] LABS: D Dimer High Sensitivity < 150 NG/ML; Partial Thromboplastin Time 31.3 SEC (26.0-36.8)
[2024-03-18 18:00] LABS: Troponin-I High Sensitivity < 2.7 ng/L (<3.5-17.0)
--- NOTE | 2024-03-18 18:02 | PC.NURSE ---
patient reeducated on need for urine sample, states she does not have to go at this time, resting comfortably on stretcher on phone. offering no complaints at this time
--- NOTE | 2024-03-18 18:33 | PC.NURSE ---
patient reeducated on need for urine sample, provided with cup and a hat to help obtain, mom at bedside, patient states she still cannot go at this time
[2024-03-18 19:13] LABS: Appearance Urine Clear; Color Urine Yellow; Glucose Urine UA Negative (Negative); Leukocyte Esterase Urine Negative (Negative); Nitrite Urine Negative (Negative); PH 5.5 (5.0-9.0); Specific Gravity - Urine >= 1.030 (1.005-1.025); Urine Blood Negative (Negative); Urine Ketones Trace mg/dL (Negative); Urine Protein Negative (Neg-Trace)
[2024-03-18 19:14] LABS: UPreg QC Valid YES; Urine Pregnancy NEGATIVE (NEGATIVE)
[2024-03-18 19:59] VITALS: BP 130/80; PULSE 88; RESP 18; TEMP 36.8; O2SAT 97
[2024-03-18] MEDS: iohexoL 350 MG/ML 100 ML INFUS..BTL IV (20:33)
[2024-03-18 22:00] VITALS: BP 132/76; PULSE 84; RESP 18; TEMP 36.8; O2SAT 98
[2024-03-18 22:33] VITALS: BP 132/76; PULSE 84; RESP 18; TEMP 36.8; O2SAT 98
== END 2024-03-18 22:38 | disposition home or self-care (01) ==
PROVIDERS: Physician Assistant; Emergency Provider Emergency Medicine; PCP Internal Medicine
DX: R10.12 Left upper quadrant pain (principal); R09.1 Pleurisy; R73.03 Prediabetes; R10.2 Pelvic and perineal pain; I49.8 Other specified cardiac arrhythmias; Z79.899 Other long term (current) drug therapy
CPT/HCPCS: 36415; 71045; 71275; 74177; 80053; 81003; 81025; 83690; 84484; 84702; 85025; 85379; 85610; 85730; 93005; 96374; 99284; 99285; J1885; Q9967

== ENCOUNTER → 2024-03-18 16:58 | Outpatient (BNV) | payer OTHER, SELFPAY | PROVIDERS: Emergency Provider Emergency Medicine; PCP Internal Medicine; Visit Provider Internal Medicine | DX: I49.9 Cardiac arrhythmia, unspecified (principal) | CPT/HCPCS: 93010 ==

== ENCOUNTER 2024-10-14 23:25 | Emergency (ER) | payer OTHER, SELFPAY ==
[2024-10-14 23:38] VITALS: BP 139/94; PULSE 83; RESP 16; TEMP 37.1; O2SAT 98; BMI 36.3
--- NOTE | 2024-10-15 00:02 | PC.NURSE ---
pt reports face feels numb, neuro intact and equal, no respiratory distress.
--- OUTSIDE RECORDS SUMMARY | 2024-10-15 02:08 | XMS_ITS | Clinical Summary ---
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 30 tablet 1 12/20/2018 Active cloNIDine 0.3 MG tabletIndicatio ns:Behavioral insomnia of childhood Take 1 tablet (0.3 mg total) by mouth nightly. 30 tablet 2 02/12/2019 Active LORAZEPAM 0.5 MG tabletIndicatio ns:Anxiety take 1 tablet by mouth every 12 hours if needed for anxiety FOR UP TO 5 DOSES 5 tablet 03/19/2019 Active Active Problems Problem Noted Date Diagnosed Date Bilateral impacted cerumen 03/06/2018 Assessment & Plan (12/23/2018 4:10 PM EDT): Cerumen removed with irrigation without difficulty. Patient tolerated procedure well. Dysuria 03/18/2017 Overview (01/11/2019): Dysuria (788.1) Onset: 03/18/2017 Added by: Adriana Ritter Intestinal infections due to other organisms Overview (01/11/2019): Viral gastroenteritis (008.8) Onset: 11/12/2015 Added by: Hazel Balderas Other malaise and fatigue 10/28/2015 Overview (01/11/2019): Chronic fatigue (780.79) Onset: 10/28/2015 Added by: Diego Pizano Attention deficit disorder with hyperactivity Overview (01/11/2019): ADHD (314.01) Onset: 09/16/2015 Added by: Savannah Welch Generalized anxiety disorder 09/16/2015 Overview (01/11/2019): Generalized anxiety disorder (300.02) Onset: 09/16/2015 Added by: Savannah Welch Immunizations Immunization Administration Dates Next Due DTaP 5 08/06/2003, 1,1999,09/15,1999 HPV, Quadrivalent 11/19/2013,07/10/2012,05/11/20 10 Hep A, ped/adol 05/04/2017,05/11/2010 Hep B, ped/adol 02/23/2000,1999,1999 Hib (PRP-T) 06/13/2000, 0,1999,07/07 IPV 08/06/2003, 0,1999,07/07 Influenza, injectable, quadr ivalent, preservative free 05/04/2017,04/29/2016 MMR 08/06/2003,02/10/2001 Meningococcal Conj (Menactra) MCV4P 04/29/2016,0 11/19/2013 Pneumococcal Conjugate 13-Valent 02/10/2001,05/29 Tdap 05/11/2010 Varicella 05/11/2010,02/26/2008,06/13/2000 Family History Medical History Relation Name Comments Anxiety disorder Mother Vandana Depression Mother Vandana Hypothyroidism Mother Vandana Anxiety disorder Sister Yolande Depression Sister Yolande PTSD Sister Yolande Relation Name Status Comments Father Not Involved Alive Mother Vandana Alive Sister Yolande Alive Social History Tobacco Use Types Packs/Day Years Used Date Smoking Tobacco: Never Comments:Never Smoker Alcohol Use Standard Drinks/Week Comments Never 0 (1 standard drink = 0.6 oz pur e alcohol) Comments Unknown Sex and Gender Information Value Date Recorded Sex Assigned at Not on file Legal Sex Female 6:30 PM EDT Gender Identity Not on file Sexual Orientation Not on file Last Filed Vital Signs Vital Sign Reading Time Taken Comments Blood Pressure 96/78 01/11/2019 1:32 PM EDT Pulse 72 06/10/2017 11:42 AM EDT Temperature 36 ??C (96.8 ??F) 01/11/2019 1:32 PM EDT Respiratory Rate - - Oxygen Saturation - - Inhaled Oxygen Concentration - - Weight 93 kg (205 lb 1.6 oz) 01/11/2019 1:32 PM EDT Height 156.2 cm (5' 1.5 ) 01/11/2019 1:32 PM EDT Body Mass Index 38.13 01/11/2019 1:32 PM EDT Plan of Treatment Health Maintenance Due Date Last Done Comments Influenza Vaccines (#1) 2024 08/21/20, 05/04/2017, 04/29/2016, Additional history exists COVID-19 Vaccine ( season) 2024 11/27/2020, 10/30/2020 DTaP,Tdap,and Td Vaccines (8 - Td or Tdap) 12/16/2030 12/16/2020, 05/11/2010, 08/06/2003, Additional history exists Hepatitis B Vaccines Completed 02/23/2000, 1999, 1999 HIB Vaccines Completed 06/13/2000, 02/2000, 1999, Additional history exists Pneumococcal Vaccine Completed 02/10/2001, 06/13/20 IPV Vaccines Completed 08/06/2003, 05/29, 1999, Additional history exists MMR Vaccines Completed 08/06/2003, 02/10/2001 Varicella Vaccines Completed 05/11/2010, 0 02/26/2008, 06/13/2000 HPV Vaccines Completed 11/19/2013, 06/29, 05/11/2010 Meningococcal Vaccine Completed 04/29/2016 , 11/19/2013, 05/11/2010 Hepatitis A Vaccines Completed 05/04/2017, 05/11/20 10 Men B Vaccine Aged Out No longer elig ible based on patient's age to complete this topic Insurance [facility] OTHER O O Care Teams Oval Or Circular Glass Cutter Relationship Specialty Start Date End Date Bibiana Moncada NP [facility] [address] PCP - General Pediatrics 12/15/20
--- OUTSIDE RECORDS SUMMARY | 2024-10-15 02:08 | XMS_ITS | Continuity of Care Document ---
Author Organization [employer] Address [address] [place] [address] Care Team Providers Care Preparation Department Supervisor Name Role Phone HIM CCA OTHER Assessment Encounter Date Assessment Date Assessment LastModified by Organization Details LastModified Time 10/12/2024 10/12/2024 As noted, we were called to see this patient regarding concerns of left great toe infection. Evaluation in the field was performed by my wharf builder colleague, as noted above, I provided real-time direction and supervision for this visit. The evaluation revealed A 24 Y/O female w PMH of autism, learning disability, IBS-D, Vit D deficiency, DMII on metformin, and sciatica who presents with an infection to the left great toe. The left great toe has had some discharge from it and redness. The patient bumped it several weeks ago. No fevers or chills. She does have pain to this toe. On wharf builder evaluation patient is afebrile. She does have redness to the toe. I evaluated the patients toe via picture that he sent in the medical record. On my evaluation of patient? s toe does seem to be infected. Our plan is to start her on keflex 500 milligrams POQ ID. I will also prescribe her some bactroban ointment. I discussed that she should soak the left great toe in soapy water that's warm for the next several days. We also recommended that the patient follow up with Podiatry for possible excision of the ingrown toenail Impression: Infected Ingrown toe nail left great toe Plan: 1) soak in soapy water twice daily 2) Keflex 500 mg po qid for 7 days 3) Bactroban ointment 4) Podiatry referral Primary care, consider set up Podiatry referral Disposition: stay at home We discussed the diagnostic uncertainty of home visits and the risk associated with this. In this case, the patient and I felt this to be an acceptable and reasonable amount of risk given the benefit of avoiding an ED visit. We discussed the need to seek care urgently/emerge ntly in the setting of any new or worsening serious symptoms, particularly increased pain or fever [id number] Not available 10/12/2024 13:35:21 Plan of Treatment Reminders Order Date Submit Date Provider Last Modified By Organization Details Last Modified Time Details Appointments None recorded. Lab None recorded. Referral None recorded. Procedures None recorded. Surgeries None recorded. Imaging None recorded. Medication Orders cephalexin 500 mg capsule 2024 025 [id number], [address], [place], [id number], 12:44:58 mupirocin 2 % topical ointment 2024 025 [facility] #[id number], [address], [place], [phone], 5 12:44:55 cephalexin 500 mg capsule 2024 025 [email or web address] 7 [facility] #[id number], [address], [place], [phone], 12:45:30 Patient TargetsNo targets recorded. Patient InstructionsNo instructions recorded. Reason for Referral None Reported. Medical Equipment None Reported. Allergies No known drug allergies Medications Name Sig Start Date Stop Date Status Note LastModified by Organization Details LastModified Time cyclobenzapr ine 10 mg tablet TAKE 1 TABLET BY MOUTH AT BEDTIME FOR 7 DAYS NEEDED FOR MUSCLE SPASM active Not Available Not Available No t Available albuterol sulfate 2.5 mg/3 mL (0.083 %) solution for nebulization Inhale 3 mL by nebulizatio n route. 2023 active Not Available Not Available Not Avai lable cetirizine 10 mg tablet TAKE 1 TABLET BY MOUTH DAILY. active Not Available Not Available No t Available clonidine HCl 0.3 mg tablet TAKE 1 TABLET BY MOUTH AT BEDTIME active Not Available Not Available No t Available bacitracin 500 unit/gram topical ointment Apply 1 application every day by topical route for 7 days. 2023 active Not Available Not Available Not Avai lable acetaminophe n 500 mg tablet TAKE 2 TABLETS BY MOUTH EVERY 8 HOURS NEEDED FOR 5 DAYS active Not Available Not Available No t Available lorazepam 0.5 mg tablet TAKE 2 TABLETS BY MOUTH EVERY NIGHT NEEDED active Not Available Not Available No t Available dicyclomine 20 mg tablet TAKE 1 TABLET BY MOUTH THREE TIMES DAILY NEEDED STOMACH UPSET/DIARR HEA active Not Available Not Available No t Available benzonatate 100 mg capsule TAKE 1 CAPSULE BY MOUTH THREE TIMES DAILY FOR 7 DAYS active Not Available Not Available N ot Available cephalexin 500 mg capsule Take 1 capsule every 6 hours by oral route. 2024 active now Not Available Not Available Not Dino labchris mupirocin 2 % topical ointment APPLY A SMALL AMOUNT TO THE AFFECTED AREA BY TOPICAL ROUTE 3 TIMES PER DAY 2024 active Not Available Not Available Not Avai lable lorazepam 1 mg tablet TAKE 1-2 TABLETS BY MOUTH EVERY NIGHT AT BEDTIME NEEDED active Not Available Not Available No t Available ibuprofen 600 mg tablet TAKE 1 TABLET BY MOUTH EVERY 6 HOURS WITH FOOD OR MILK FOR 7 DAYS NEEDED active Not Available Not Available No t Available albuterol sulfate HFA 90 mcg/actuatio n aerosol inhaler INHALE 2 PUFFS BY MOUTH EVERY 4 HOURS FOR 5 DAYS NEEDED active Not Available Not Available No t Available fluticasone propionate 50 mcg/actuatio n nasal spray,suspen jerod SHAKE LIQUID AND USE 1 SPRAY IN EACH NOSTRIL DAILY active Not Available Not Available No t Available metformin ER 500 mg tablet,exten ded release 24 hr TAKE 1 TABLET BY MOUTH EVERY DAY WITH LARGEST MEAL OF THE DAY active Not Available Not Available No t Available loratadine 10 mg tablet TAKE 1 TABLET BY MOUTH EVERY DAY FOR CONGESTION active Not Available Not Available N ot Available naproxen 500 mg tablet TAKE 1 TABLET BY MOUTH TWICE DAILY FOR 7 DAYS NEEDED FOR PAIN active Not Available Not Available No t Available bupropion HCl XL 300 mg 24 hr tablet, extended release TAKE 1 TABLET BY MOUTH DAILY active Not Available Not Available Not Available budesonide-f ormoterol HFA 80 mcg-4.5 mcg/actuatio n aerosol inhaler INHALE 2 PUFFS BY MOUTH TWICE DAILY active Not Available Not Available No t Available levocetirizi ne 5 mg tablet TAKE 1 TABLET BY MOUTH DAILY IN THE EVENING active Not Available Not Available No t Available diclofenac 1 % topical gel APPLY A THIN LAYER TO AREA OF PAINFUL SMALL JOINT NEEDED EXTERNALLY TWICE DAILY active Not Available Not Available Not Available BinaxNOW COVID-19 Ag Self Test kit active Not Available Not Available Not Available Vitals Date Recorded Oxygen saturation Oxygen saturation in Arterial blood by Pulse oximetry Respiratory rate Heart rate Body temperature Systolic blood pressure Diastolic blood pressure Provider Name and Address Organization Details Last Updated DateTime 5 99 % 99 % 16 /min 86 /min 98.1 [degF] 128 mm[Hg] 76 mm[Hg] Not Available [facility] - production 5 12:42:43 Social History None recorded. Functional Status None recorded. Mental Status None recorded. Family History Nothing Reported. Medical History No medical history recorded. Gynecological HistoryNo gynecological history recorded. Obstetrics History GPAL:G 0 P 0 0 0 0 Past Encounters Encounter ID Performer Location Encounter Start Date Encounter Closed Date Diagnosis/Indication Diagnosis SNOMED-CT Code Diagnosis ICD10 Code Diagnosis Note [id number] CHLOE GARCIA MD [facility] [address] [place] [phone] 10/12/2024 12:42:34 10/12/2024 15:27:44 Ingrowing nail of toe of left foot [id number] 4305741 L60.0 Paronychia of toe of left foot due to ingrown toenail 885128730 L60.0 Health Concerns Section Related Observation LastModified by Organization Detai ls LastModified Time None Recorded Concern Status LastModified by Organization Details LastModified Time None Recorded Payers Encounter Date Sequence Insurance Name Policy Number Policy Mccarthy Covered Member ID Mccarthy Member ID Guarantor Name 10/12/2024 1 [facility] - DOS ON OR AFTER 2022 - DUAL ELIGIBLE - ALF OPTIONS AND ONE CARE (MEDICARE REPLACEMENT/AD VANTAGE - HMO) Delaney Dawn [id number] Delaney Dawn Notes Date Note Type Note Provider Name and Address Organization Details Recorded Time 10/12/2024 text/html HPI: 24 YO female w PMH of autism, learning disability, IBS-D, Vit D deficeience, DMII on metformin, and sciatica. Mother calls in reporting a puffy, red, swollen R great toe around the cuticle. Did not mention to VINCENT Nye at last OV, she forgot. It has green/yellow drainage. She has had it for a couple of weeks from bumping it and last reported bump was 4 days ago. No appts, sending [facility] for assessment and treatment. .................. .................. .................. .................. .................. .................. .................. ............... [facility] Nurse Triage Notes (Tiago Nelson - RN): Chief Complaints: Joint pain/swelling, Wound care PMH: Severe Persistent Mental Illness (SPMI) PMH Reviewed at 10/12/2024 - 10:40 Allergies Reviewed at 10/12/2024 - 10:40 Comments: HPI reviewed by this RN, no further information needed to process visit -Katie Nelson RN .................. .................. .................. .................. .................. .................. .................. ............... Toy Assembly Supervisor Note From Brandan Quevedo: Dispatched to the call address for the female with toe pain. Pt states she has been dealing with left great toe pain for a few days now, advising that she banged it on the stairs by accident. She advises that it is very tender and has been oozing yellow puss. She has not spoken to her doctor about this issue yet. She has used AAA ointment and used a mixture of water/hydrogen peroxide on it. Pt denies fevers at this time Pt was found sitting on living room couch, CAOx3, airway open and patent, breathing non labored, able to speak in full sentences, -JVD, -HEENT, skin PWD with good turgor, mucous membranes pink and moist, pupils PERRL, lungs CTA, abd soft non tender/distended, -edema/swelling, - facial/sinus tenderness, Afebrile, toe of complaint with erythema, warmth and tenderness . C consulted. Pt given 500mg Cephalexin PO. Script called into preferred pharmacy. Red flags discussed. ALL times are approx. .................. .................. .................. .................. .................. .................. .................. ............... [facility] [facility] [place]: Chloe Garcia .................. .................. .................. .................. .................. .................. .................. ............... Disposition: Fulfilled CHLOE GARCIA MD [address] [facility],[address], [place], [phone], [facility] [employer] 10/12/2024 13:35:35 OBGyn Episode No OBEpisode recorded.
--- OUTSIDE RECORDS SUMMARY | 2024-10-15 02:08 | XMS_ITS | Encounter Summary ---
Author Organization [facility] Address [address] [place] [address] Phone Care Team Providers Care Sack Sorter Name Role Phone Bibiana Moncada NP Primary Care Provider [phone] Encounter Details Date Type Department Care Team (Late st Contact Info) Description 06/23/2015 Conversion Encounter [facility] [address] [place] [address] Social History Tobacco Use Types Packs/Day Years Used Date Smoking Tobacco: Never Assessed Comments Unknown Sex and Gender Information Value Date Recorded Sex Assigned at Not on file Legal Sex Female 6:30 PM EDT Gender Identity Not on file Sexual Orientation Not on file documented as of this encounter Plan of Treatment Not on file documented as of this encounter Visit Diagnoses Not on filedocumented in this encounter Care Teams Sack Sorter Relationship Specialty Start Date End Date Bibiana Monacda NP [address] [place] [address] PCP - General Pediatrics 12/15/20 documented as of this encounter
--- NOTE | 2024-10-15 02:46 | ED_ITS ---
HPI - General Adult General Chief complaint: Allergic Reaction Stated complaint: tongue pain and mouth blisters Time Seen by Provider: 10/15/24 02:40 Source: patient Mode of arrival: ambulatory Limitations: no limitations History of Present Illness ED Provider: HPI narrative: Patient's history of autism anxiety stress on FODMAP diet for IBS noticed after eating burger noticed baldness of the tongue with slight pain no swelling Related Data Previous Rx's ?Medication ?Instructions ?Recorded amoxicillin 875 mg-potassium 1 tab PO BID #20 tabs 06/12/22 clavulanate 125 mg tablet benzonatate 200 mg capsule 200 mg PO TID PRN cough #20 caps 06/12/22 cyclobenzaprine 10 mg tablet 10 mg PO BEDTIME PRN muscle spasm 03/18/24 7 days #7 tabs naproxen 500 mg tablet 500 mg PO BID PRN pain 7 days #14 03/18/24 tabs Allergies Allergy/AdvReac Type Severity Reaction Status Date / Time cat dander Allergy Itching Verified 10/14/24 23:41 dog dander Allergy Itching Verified 10/14/24 23:41 Review of Systems 2 Review of Systems: Yes all other systems are reviewed and are negative PMFSH Social History Social History Advance Directives: No Advance Directives Information Provided: Yes Do you have a plan to hurt others: No Plan Physical Exam ED Vital Signs: Vital Signs - 24 hr 10/14/24 23:38 10/15/24 02:57 Temperature 98.7 F 98.7 F Pulse Rate 83 83 Respiratory Rate 16 16 Blood Pressure 139/94 H 139/94 H Pulse Oximetry 98 98 Oxygen Delivery Method Room Air Room Air BMI result Body Mass Index 36.3 HENMT Mouth/tongue images: 2 1. Loss of villi bald area 2. Loss of villi bald are Medical Decision Making Medical Decision Making [facility] Narrative: Patient with area of Baldness of the tongue likely from nutrition deficiency advised to use vitamin B complex and follow with mail list librarian Discharge Plan Discharge Clinical Impression: Bald tongue Patient Disposition: Home, Self-Care Instructions: Geographic Tongue (ED) Additional Instructions: Changes in the tongue is from the stress nutritional deficiency Started taking B complex/centrum daily and follow with mail list librarian Prescriptions: No Action amoxicillin-pot clavulanate 875-125 mg tablet 1 tab PO BID Qty: 20 0RF benzonatate 200 mg capsule 200 mg PO TID PRN (Reason: cough) Qty: 20 0RF naproxen 500 mg tablet 500 mg PO BID PRN (Reason: pain) 7 Days Qty: 14 0RF cyclobenzaprine 10 mg tablet 10 mg PO BEDTIME PRN (Reason: muscle spasm) 7 Days Qty: 7 0RF Interventions: ED Discharge Assessment Last Done: 10/15/24 02:57 Discharge Date/Time: 10/15/24 02:57 Print Language: Surinamese
[2024-10-15 02:57] VITALS: BP 139/94; PULSE 83; RESP 16; TEMP 37.1; O2SAT 98
== END 2024-10-15 02:57 | disposition home or self-care (01) ==
PROVIDERS: Emergency Provider Internal Medicine; PCP Registered Nurse
DX: K14.4 Atrophy of tongue papillae (principal)
CPT/HCPCS: 99282